=== PATIENT | male | born 1990 | race Caucasian/White ===

== ENCOUNTER 2024-03-10 19:34 | Inpatient (IN) | payer SELFPAY ==
[~2024-03-10] VITALS: Ht 188 cm; Wt 2862.2 kg
[2024-03-10 19:35] VITALS: O2SAT 97
[2024-03-10] MEDS: SODIUM CHLORIDE 0.9% 1,000 ML IV ONE (19:45)
[2024-03-10] MEDS: ONDANSETRON HCL 4MG/2ML INJ IV ONE (20:15)
[2024-03-10 21:07] LABS: BASOPHILS % 0.6 % (0.0-2.0); EOSINOPHILS % 0.4 % (0.0-5.0); HEMATOCRIT. 48.2 % (42.0-52.0); HEMOGLOBIN. 16.3 g/dL (14.0-18.0); MEAN CORPUSCULAR HEMOGLOBIN 31.2 pg (28.0-32.0); MEAN CORPUSCULAR HGB CONC 33.8 g/dL (31.0-37.0); MEAN CORPUSCULAR VOLUME 92.2 fL (80.0-94.0); MEAN PLATELET VOLUME 8.8 fl (7.4-10.4); MONOCYTES % 5.6 % (2.0-8.0); NEUTROPHILS % 61.4 % (40.0-76.0); PLATELET 321 x1000/uL (130-400); RED BLOOD CELL COUNT 5.22 mill/uL (4.7-6.1); RED CELL DISTRIBUTION WIDTH 13.1 % (11.6-14.6); WHITE BLOOD COUNT 20.3 x1000/uL (4.5-11.0)
[2024-03-10 21:15] LABS: CARBON DIOXIDE 23 mEq/L (21-32); CHLORIDE 104 mEq/L (98-107); POTASSIUM 3.1 mEq/L (3.5-5.1); SODIUM 142 mEq/L (136-145)
[2024-03-10 21:20] LABS: GLUCOSE 121 mg/dL (70-105)
[2024-03-10 21:21] LABS: ETHANOL BLOOD 251 mg/dL (<10); UREA NITROGEN BLOOD 6 mg/dL (9-23)
[2024-03-10] MEDS: SODIUM CHLORIDE 0.9% (SEPSIS BOLUS) IV ONE (21:30)
[2024-03-10] MEDS: AZITHROMYCIN 500MG/250ML 250 ML IV ONE (21:30)
[2024-03-10] MEDS ORDERED: KCL 20MEQ/100ML PREMIX 100 ML IV ONE (21:30)
[2024-03-10] MEDS: CEFTRIAXONE 1GM/50ML 50 ML IV ONE (21:30)
[2024-03-11 00:10] LABS: ALANINE AMINOTRANSFERASE 18 IU/L (10-49); ALBUMIN 5.1 g/dL (3.2-4.8); ASPARTATE AMINOTRANSFERASE 22 IU/L (<34); BILIRUBIN DIRECT 0.1 mg/dL (<=3.0)
[2024-03-11 00:11] LABS: BILIRUBIN TOTAL 0.6 mg/dL (0.1-1.0); PROTEIN TOTAL 7.6 g/dL (6.0-8.3)
[2024-03-11 00:22] LABS: LACTIC ACID 2.2 mmol/L (0.4-2.0)
[2024-03-11 00:30] LABS: TROPONIN I HIGH SENSITIVITY < 4 ng/L (3.0-53)
[2024-03-11] MEDS ORDERED: CHLORDIAZEPOXIDE 25MG CAPSULE PO PRN (01:30)
[2024-03-11] MEDS ORDERED: LORAZEPAM 2MG/ML INJ IV PRN (01:30)
[2024-03-11] MEDS ORDERED: LORAZEPAM 1MG TABLET PO PRN (01:30)
[2024-03-11 01:38] VITALS: BP 103/60; PULSE 70; RESP 20; TEMP 36.28068; O2SAT 98
[2024-03-11] MEDS ORDERED: DULO60CA45 PO (01:42)
[2024-03-11 01:44] VITALS: BP 103/60; PULSE 70; RESP 20; TEMP 36.3068
[2024-03-11] MEDS ORDERED: CLONIDINE 0.1MG TABLET PO PRN (01:45)
[2024-03-11] MEDS ORDERED: IPRATROPIUM/ALBUTEROL 0.5-3(2.5)MG/3ML NEB HHN PRN (01:45)
[2024-03-11] MEDS ORDERED: GUAIFENESIN 200MG/10ML SUGAR FREE UDC PO PRN (01:45)
[2024-03-11] MEDS ORDERED: IPRATROPIUM/ALBUTEROL 0.5-3(2.5)MG/3ML NEB HHN SCH (01:45)
[2024-03-11] MEDS ORDERED: ONDANSETRON HCL 4MG/2ML INJ IV PRN (01:45)
[2024-03-11] MEDS ORDERED: ACETAMINOPHEN 325MG TABLET PO PRN ×2 (01:45)
[2024-03-11] MEDS ORDERED: DOCUSATE SODIUM 100MG CAPSULE PO PRN (01:45)
[2024-03-11] MEDS: POTASSIUM CHLORIDE 20MEQ TABLET SR PO NR (02:00)
[2024-03-11] MEDS: SODIUM CHLORIDE 0.9% 1,000 ML IV SCH (02:19)
[2024-03-11 02:39] LABS: BASOPHILS % 0.3 % (0.0-2.0); EOSINOPHILS % 0.1 % (0.0-5.0); HEMATOCRIT. 46.8 % (42.0-52.0); HEMOGLOBIN. 15.3 g/dL (14.0-18.0); LYMPHOCYTES % 20.4 % (20.0-50.0); MEAN CORPUSCULAR HEMOGLOBIN 29.4 pg (28.0-32.0); MEAN CORPUSCULAR HGB CONC 32.7 g/dL (31.0-37.0); MEAN CORPUSCULAR VOLUME 89.9 fL (80.0-94.0); MEAN PLATELET VOLUME 7.9 fl (7.4-10.4); MONOCYTES % 3.7 % (2.0-8.0); NEUTROPHILS % 75.5 % (40.0-76.0); PLATELET 290 x1000/uL (130-400); RED CELL DISTRIBUTION WIDTH 13.1 % (11.6-14.6); WHITE BLOOD COUNT 13.2 x1000/uL (4.5-11.0)
[2024-03-11 02:43] LABS: CHLORIDE 107 mEq/L (98-107); POTASSIUM 4.2 mEq/L (3.5-5.1); SODIUM 144 mEq/L (136-145)
[2024-03-11 02:44] LABS: CARBON DIOXIDE 30 mEq/L (21-32)
[2024-03-11 02:45] LABS: CALCIUM 9.2 mg/dL (8.7-10.4)
[2024-03-11 02:49] LABS: CREATININE 0.9 mg/dL (0.6-1.3); GLUCOSE 107 mg/dL (70-105); UREA NITROGEN BLOOD 6 mg/dL (9-23)
[2024-03-11] MEDS: CEFTRIAXONE 1GM/50ML 50 ML IV SCH (03:21)
[2024-03-11] MEDS: FOLIC ACID 1 MG, THIAMINE HCL 100 MG, MVI, ADULT NO.1 10 ML in DEXTROSE 5% WATER 1,000 ML IV ONE (03:25)
[2024-03-11 04:00] VITALS: BP 102/52; PULSE 71; RESP 20; TEMP 36.55848; O2SAT 98
[2024-03-11] MEDS: AZITHROMYCIN 500MG/250ML 250 ML IV SCH (05:21)
[2024-03-11] MEDS ORDERED: FOLIC ACID 1MG TABLET PO SCH (09:00)
[2024-03-11] MEDS ORDERED: MULTIVITAMINS,THER W-MINERALS TABLET PO SCH (09:00)
[2024-03-11] MEDS ORDERED: FAMOTIDINE 20MG TABLET PO SCH (21:00)
[2024-03-13] MEDS ORDERED: THIAMINE HCL 100MG TABLET PO SCH (09:00)
== END 2024-03-11 06:55 | disposition left against medical advice (07) | DRG 720 ==
LOC: ER 19:34 → 8WST 23:51
PROVIDERS: ADMIT Internal Medicine; ATTEND Internal Medicine
DX: A41.9 Sepsis, unspecified organism (principal); F10.129 Alcohol abuse with intoxication, unspecified; Z53.29 Procedure and treatment not carried out because of patient's decision for other reasons; F19.90 Other psychoactive substance use, unspecified, uncomplicated; Y90.8 Blood alcohol level of 240 mg/100 ml or more; Z79.899 Other long term (current) drug therapy
CPT/HCPCS: 36415; 71045; 80048; 80076; 80320; 83605; 83880; 84484; 85025; 99285; J0456; J0696; J3411; J3490; J7030; J7070; G0480